=== PATIENT | female | born 1975 | race Hispanic/Latino ===

== ENCOUNTER 2019-11-04 19:02 | Emergency (ER) | payer OTHER ==
[2019-11-04] MEDS ORDERED: ASPIRIN 325 MG TABLET ONE (19:28)
[2019-11-04 19:32] LABS: BASOPHILS % (AUTO) 0.8 % (0.0-5.0); EOSINOPHILS % (AUTO) 3.5 % (0.0-8.0); HEMATOCRIT 39.4 % (36-48); LYMPHOCYTES % (AUTO) 42.8 % (21.0-51.0); MEAN CORPUSCULAR HEMOGLOBIN 30.1 pg (27.0-33.0); MEAN CORPUSCULAR HGB CONC 34.3 g/dL (32.0-36.0); MEAN CORPUSCULAR VOLUME 87.9 fL (79-99); MONOCYTES % (AUTO) 8.2 % (3.0-13.0); NEUTROPHILS % (AUTO) 44.4 % (40.0-77.0); PLATELET COUNT (AUTO) 309 K/uL (130-400); RED BLOOD CELL COUNT(AUTO) 4.48 MIL/uL (4.00-5.50); RED CELL DISTRIBUTION WIDTH 12.3 % (11.0-15.5); WHITE BLOOD COUNT (AUTO) 7.4 K/uL (4.8-10.8)
[2019-11-04 19:40] LABS: CREATININE 0.8 mg/dL (0.5-1.5); POTASSIUM 3.9 mmol/L (3.5-5.1)
[2019-11-04 19:42] LABS: INR 0.97 (0.85-1.15); PARTIAL THROMBOPLASTIN TIME 24.7 SEC (26.3-35.5); PROTHROMBIN TIME 10.2 SEC (9.6-11.6)
[2019-11-04 20:02] LABS: BILIRUBIN,TOTAL 0.3 mg/dL (0.2-1.0); TOTAL PROTEIN, SERUM 8.1 g/dL (6.0-8.3)
[2019-11-04 20:02] LABS: APPEARANCE,URINE Clear (CLEAR); BILIRUBIN,URINE Negative (NEGATIVE); COLOR,URINE Yellow (YELLOW); GLUCOSE, URINE (UA) Negative (NEGATIVE); KETONES,URINE Negative (NEGATIVE); LEUKOCYTE ESTERASE ,URINE Negative (NEGATIVE); NITRATE,URINE Negative (NEGATIVE); OCCULT BLOOD,URINE Negative (NEGATIVE); PROTEIN,URINE Negative (NEGATIVE); UROBILINOGEN,URINE 0.2 mg/dL (0.2-1.0)
[2019-11-04 20:03] LABS: HCG,QUAL RESULT NEGATIVE (NEGATIVE)
[2019-11-04 20:05] LABS: THYROID STIMULATING HORMONE 1.5 uIU/mL (0.36-3.74)
== END 2019-11-04 20:29 | disposition home or self-care (01) ==
LOC: EDH 19:02
DX: R00.2 Palpitations (principal); R07.89 Other chest pain; R61 Generalized hyperhidrosis; R11.0 Nausea
CPT/HCPCS: 36415; 71045; 80053; 81003; 81025; 82550; 83690; 84443; 84484; 85025; 85610; 85730; 93005

== ENCOUNTER 2020-08-16 03:42 | Emergency (ER) | payer OTHER ==
[2020-08-16] MEDS ORDERED: KETOROLAC TROMETHAMINE 60 MG/2 ML VIAL ONE (04:18)
== END 2020-08-16 05:05 | disposition home or self-care (01) ==
LOC: EDH 03:42
DX: M62.838 Other muscle spasm (principal); M54.5 Low back pain; Z98.890 Other specified postprocedural states; Z72.0 Tobacco use
CPT/HCPCS: 96372; 99283; J1885

== ENCOUNTER 2021-07-11 08:45 | Emergency (ER) | payer MEDICAID, OTHER ==
[~2021-07-11] VITALS: Ht 154.9 cm; Wt 66.7 kg
[2021-07-11 09:12] VITALS: BP 122/82
[2021-07-11 09:17] LABS: BASOPHILS % (AUTO) 0.3 % (0.0-5.0); EOSINOPHILS % (AUTO) 0.9 % (0.0-8.0); HEMATOCRIT 39.2 % (36-48); LYMPHOCYTES % (AUTO) 14.7 % (21.0-51.0); MEAN CORPUSCULAR HEMOGLOBIN 30.5 pg (27.0-33.0); MEAN CORPUSCULAR HGB CONC 33.2 g/dL (32.0-36.0); MONOCYTES % (AUTO) 6.5 % (3.0-13.0); NEUTROPHILS % (AUTO) 77.3 % (40.0-77.0); PLATELET COUNT (AUTO) 272 K/uL (130-400); RED BLOOD CELL COUNT(AUTO) 4.26 MIL/uL (4.00-5.50); RED CELL DISTRIBUTION WIDTH 12.8 % (11.0-15.5); WHITE BLOOD COUNT (AUTO) 9.8 K/uL (4.8-10.8)
[2021-07-11 09:21] LABS: APPEARANCE,URINE Clear (CLEAR); BILIRUBIN,URINE Negative (NEGATIVE); COLOR,URINE Yellow (YELLOW); GLUCOSE, URINE (UA) Negative (NEGATIVE); KETONES,URINE Negative (NEGATIVE); LEUKOCYTE ESTERASE ,URINE Negative (NEGATIVE); NITRATE,URINE Negative (NEGATIVE); OCCULT BLOOD,URINE Small (NEGATIVE); PH,URINE 5.5 (5.0-8.0); PROTEIN,URINE Negative (NEGATIVE); UROBILINOGEN,URINE 0.2 mg/dL (0.2-1.0)
[2021-07-11 09:30] LABS: BACTERIA,URINE Rare /HPF (None Seen); SQUAMOUS EPITHELIAL CELL,UR Moderate /HPF (0-2); WBC,URINE 0-1 /HPF (0-1)
[2021-07-11] MEDS ORDERED: 0.9%NACL 1000ML 1,000 ML IV SCH (09:30)
[2021-07-11] MEDS ORDERED: ONDANSETRON 4MG INJ IVP ONE (09:30)
[2021-07-11 09:35] LABS: CREATININE 0.8 mg/dL (0.5-1.5); POTASSIUM 4.2 mmol/L (3.5-5.1)
[2021-07-11 09:39] LABS: ALBUMIN 3.4 g/dL (3.5-5.0); BILIRUBIN,TOTAL 0.2 mg/dL (0.2-1.0); TOTAL PROTEIN, SERUM 7.2 g/dL (6.0-8.3)
[2021-07-11 09:57] VITALS: BP 104/55
[2021-07-11] MEDS ORDERED: DiphenhydrAMINE HCL 50 MG/ML VIAL IM ONE (10:30)
[2021-07-11] MEDS ORDERED: SOLU-MEDROL 125MG VIAL IVP ONE (10:30)
[2021-07-11] MEDS ORDERED: PRED20TA3 PO (11:46)
[2021-07-11] MEDS ORDERED: ONDA4TAB4 PO (11:46)
[2021-07-11] MEDS ORDERED: DIPH50 PO (11:46)
[2021-07-11 11:47] VITALS: BP 115/78
== END 2021-07-11 12:08 | disposition home or self-care (01) ==
LOC: EDH 08:45
DX: L50.0 Allergic urticaria (principal); E86.0 Dehydration; R11.2 Nausea with vomiting, unspecified; Z98.890 Other specified postprocedural states
CPT/HCPCS: 36415; 80053; 81001; 82150; 83690; 85025; 96361; 96372; 96374; 96375; 99284; J1200; J2405; J2930; J7030

== ENCOUNTER 2024-12-07 22:40 | Emergency (ER) | payer BC, MEDICAID ==
[~2024-12-07] VITALS: Ht 152.4 cm; Wt 64.4 kg
[~2024-12-07 22:40] MED LIST: DIPH50 PO; ONDA4TAB4 PO; PRED20TA3 PO
--- NOTE | 2024-12-07 23:20 | ERN ---
ED Note History of Present Illness Stated Complaint: C/O ABD PAIN W/ N X V AND HEADACHE X 3 DAYS Chief Complaint: Abdominal Pain Time Seen by MD: 22:51 Time Seen by Midlevel: 22:51 Dictation: The patient is a 49-year-old female with history of who presents to the emergency department with complaints of epigastric pain for three days associated with nausea. Patient reports that today after running she started to get a right frontal headache associated with some dizziness. Patient denies any trauma. Denies any fevers, diarrhea or constipation. Denies any cough. Denies any use of blood thinners. Allergies: Coded Allergies: No Known Drug Allergies (Unverified Allergy, Unknown, 07/11/21) Home Meds Active Scripts Prednisone (Prednisone) 20 Mg Tablet, 1 TAB PO AD for 6 Days, #14 TAB 0 Refills TAKE 1 TAB BY MOUTH THREE TIMES PER DAY X3 DAYS, THEN TAKE 1 TAB BY MOUTH TWICE A DAY X2 DAYS, THEN TAKE 1 TAB BY MOUTH ONCE A DAY X1 DAY. Prov:KAMRAN KIRK MD 07/11/21 Diphenhydramine HCl (Benadryl) 50 Mg Cap, 50 MG PO TID PRN for ALLERGIC REACTION for 10 Days, #30 CAP 0 Refills Prov:KAMRAN KIRK MD 07/11/21 Ondansetron HCl (Zofran) 4 Mg Tablet, 8 MG PO Q8H PRN for NAUSEA/VOMITING for 5 Days, #20 TAB 0 Refills Prov:KAMRAN KIRK MD 07/11/21 Past Medical History Past Medical History: No Pertinent History Surgical History: None Family History: HTN Social History: Negative, Lives with family RN Note Reviewed/Agreed w/PFSH: Yes Review of System Dictation Constitutional: Negative for fever,chills, and weight loss Eyes: Negative for injury, pain,redness, and discharge ENT: Negative for injury,pain or swelling Cardiovascular: Negative for chest pain, palpitations, and edema Respiratory: Negative for shortness of breath, cough, and wheezing, Abdomen/GI: Negative for , vomiting, diarrhea, and constipation positive for abdominal pain, nausea Back: Negative for injury and pain : Negative for injury, bleeding and discharge MS/Extremity: Negative for injury and deformity Skin: Negative for rash, and discoloration Neuro: Negative for weakness, numbness, tingling, and seizure positive for headache, dizziness Psych: Negative for suicide ideation, homicidal ideation, and hallucinations Initial Vital Sign VS Vital Signs Date Time Temp Pulse Resp B/P (MAP) Pulse Ox O2 Delivery O2 Flow Rate FiO2 12/07/24 22:51 98.1 57 18 125/84 99 Room Air 12/07/24 23:30 0 21 Physical Exam Dictation Vital Signs reviewed General Appearance: Alert, oriented x 3, no acute distress, well developed, nourished. Head and Face: non-traumatic. Eyes: PERRL, pink conjunctivas, eyelid no trauma, anterior chamber with arcus senilis. Ears: Pinnas intact and no signs of trauma or erythema ear canals clear and no discharge TM no erythema Nose: No discharge, no bleeding. Oropharynx: Mouth normal, tongue pink. pharynx clear,no erythema, tonsils no exudates, no abscesses noted, mucous membrane moist Neck: Supple, non-tender, no thyromegaly, no masses, no JVD, no bruits Breast:Deferred Chest:No tenderness, no crepitus, no paradoxical movement, no retractions Lungs:Clear, well-ventilated, symmetric, no rales, no wheezing, no rhonchi, no stridor, good breath sounds bilaterally Heart: Regular rate, regular rhythm, no murmur, no gallops Vascular: no peripheral edema, Abdomen: Soft, positive bowel sounds, nondistended, no guarding, nontender, no rebound, no masses no hepatomegaly, no splenomegaly, no Santacruz's sign, no hernias. Rectal: Deferred Genital: Deferred Neurological: Normal speech, motor function intact, sensory function intact , upper extremities equal in strength, lower extremities equal in strength Musculoskeletal: Neck nontender, full range of motion, back nontender, full range of motion, Extremities: nontender, full range of motion Skin: Color pink, dry, no turgor, no rash, no lacerations, no abrasions, no cont usions. Lymphatic: Deferred Results (Laboratory/Radiology) Laboratory/Radiology Laboratory Tests Test 12/07/24 23:21 White Blood Count 6.6 K/uL (4.8-10.8) Red Blood Count 4.36 MIL/uL (4.00-5.50) Hemoglobin 13.2 g/dL (12.0-16.0) Hematocrit 39.1 % (36-48) Mean Corpuscular Volume 89.7 fL (79-99) Mean Corpuscular Hemoglobin 30.3 pg (27.0-33.0) Mean Corpuscular Hemoglobin Concent 33.8 g/dL (32.0-36.0) Red Cell Distribution Width 12.2 % (11.0-15.5) Platelet Count 311 K/uL (130-400) Mean Platelet Volume 11.2 fL (7.5-10.5) H Immature Granulocyte % (Auto) 0.2 % (0-1) Neutrophils (%) (Auto) 34.2 % (40.0-77.0) L Lymphocytes (%) (Auto) 54.1 % (21.0-51.0) H Monocytes (%) (Auto) 8.1 % (3.0-13.0) Eosinophils (%) (Auto) 2.6 % (0.0-8.0) Basophils (%) (Auto) 0.8 % (0.0-5.0) Neutrophils # (Auto) 2.3 K/uL (1.8-7.7) Lymphocytes # (Auto) 3.6 K/uL (1.0-4.8) Monocytes # (Auto) 0.5 K/uL (0.1-1.0) Eosinophils # (Auto) 0.17 K/uL (0.00-0.70) Basophils # (Auto) 0.05 K/uL (0.00-0.20) Absolute Immature Granulocyte (auto 0.01 K/uL (0-1) Nucleated Red Blood Cells 0.0 % (0.0-0.19) Urine Color LIGHT-YELLOW (YELLOW) Urine Appearance CLEAR (CLEAR) Urine pH 5.0 (5.0-8.0) Urine Specific [place] 1.015 (1.001-1.031) Urine Protein NEGATIVE mg/dL (NEGATIVE) Urine Glucose (UA) NEGATIVE mg/dL (NEGATIVE) Urine Ketones NEGATIVE mg/dL (NEGATIVE) Urine Occult Blood NEGATIVE (NEGATIVE) Urine Nitrate NEGATIVE (NEGATIVE) Urine Bilirubin NEGATIVE mg/dL (NEGATIVE) Urine Urobilinogen 0.2 mg/dL (0.2-1.0) Urine Leukocyte Esterase NEGATIVE Manuel/uL Urine HCG, Qualitative NEGATIVE (NEGATIVE) Sodium Level 137 mmol/L (136-145) Potassium Level 3.7 mmol/L (3.5-5.1) Chloride Level 102 mmol/L (101-111) Carbon Dioxide Level 29 mmol/L (21-32) Blood Urea Nitrogen 16 mg/dL (7-18) Creatinine 0.8 mg/dL (0.5-1.0) Glomerular Filtration Rate Calc 91 mL/min (>90) Random Glucose 92 mg/dL (70-105) Total Calcium 9.5 mg/dL (8.5-10.1) Magnesium Level 2.10 mg/dL (1.80-2.40) Total Bilirubin 0.5 mg/dL (0.2-1.0) Direct Bilirubin 0.1 mg/dL (0.0-0.3) Aspartate Amino Transf (AST/SGOT) 21 U/L (10-37) Alanine Aminotransferase (ALT/SGPT) 28 U/L (12-78) Alkaline Phosphatase 70 U/L (50-136) Total Creatine Kinase 150 U/L (21-232) # Troponin I High Sensitivity 6 ng/L (4-50) Total Protein 7.9 g/dL (6.0-8.3) Albumin 4.2 g/dL (3.5-5.0) Lipase 35 U/L (16-77) REASON: headache ORDERING PHYSICIAN: JACKLYN RASHEED PROCEDURE: HEAD WO - CT HEAD/BRAIN W/O CONTRAST CT HEAD/BRAIN W/O CONTRAST HISTORY: Headaches COMPARISON: None TECHNIQUE: Multiple sequential axial images of the head were obtained from the base of the skull through vertex. Patient was not given contrast through intravenous route. FINDINGS: The ventricles and extraventricular CSF spaces are nondilated for patient's age. There is no midline shift, mass effect or herniation. No acute intracranial bleed is seen. Visualized portion of the paranasal sinuses are grossly within normal limits. IMPRESSION: 1. No acute intracranial bleed is seen. Labs Reviewed?: Yes EKG: (+) rhythm (Sinus rhythm) EKG Comment: Date:12/07/2024 Time:2322 Ventricular rate:54 WI interval:171 QRS duration:82 QT/QTc:410 EKG interpretation: Sinus bradycardia Reviewed by ED Attending no STEMI ED Course ED Course Orders Procedure Category Date Status Time Urinalysis Profile LAB 12/07/24 Complete 22:59 ,Urine Test LAB 12/07/24 Complete 23:06 Cbc With Differential LAB 12/07/24 Complete 23:06 12 Lead Ekg Tracing- EKG 12/07/24 Complete Technical 23:06 0.9%Nacl 1000ml (Ns PHA 12/07/24 Complete 1000ml) 23:30 Magnesium LAB 12/07/24 Complete 23:06 Creatine Kinase, Total LAB 12/07/24 Complete 23:06 Troponin I High LAB 12/07/24 Complete Sensitivity 23:06 Basic Metabolic Panel LAB 12/07/24 Complete 23:06 Lipase LAB 12/07/24 Complete 23:06 Hepatic Function Panel LAB 12/07/24 Complete 23:06 Acetaminophen 500mg PHA 12/07/24 Complete Tab (Tylenol 500mg T 23:30 Metoclopramide 10 PHA 12/07/24 Complete Mg/2 Ml Vial (Reglan 1 23:30 Diphenhydramine Hcl PHA 12/07/24 Complete (Benadryl Inj) 23:30 Pantoprazole 40mg Inj PHA 12/07/24 Complete (Protonix 40mg Inj 23:30 Ct Head/Brain W/O CT 12/08/24 Resulted Contrast 00:17 Current Medications Medications (Trade) Dose Ordered Sig/Lanny Route PRN Reason Start Time Stop Time Status Last Admin Dose Admin Acetaminophen (TYLenol 500MG TAB) 1,000 mg ONCE ONCE PO 12/07/24 23:30 12/07/24 23:31 DC 12/07/24 23:53 Diphenhydramine HCl (BENAdryl INJ) 25 mg ONCE ONCE IV 12/07/24 23:30 12/07/24 23:31 DC 12/07/24 23:53 Metoclopramide HCl (regLAN 10MG IV) 10 mg ONCE ONCE IVP 12/07/24 23:30 12/07/24 23:31 DC 12/07/24 23:53 Pantoprazole Sodium (PROTonix 40MG INJ) 40 mg ONCE ONCE IVP 12/07/24 23:30 12/07/24 23:31 DC 12/07/24 23:53 Sodium Chloride 1,000 ml @ 0 mls/hr ONCE ONCE IV 12/07/24 23:30 12/07/24 23:31 DC 12/07/24 23:53 Vital Signs Date Time Temp Pulse Resp B/P (MAP) Pulse Ox O2 Delivery O2 Flow Rate FiO2 12/07/24 23:30 98.1 60 18 125/62 98 Room Air* 0 21 12/07/24 22:51 98.1 57 18 125/84 99 Room Air Medical Decision Making MDM The patient is a 49-year-old female with history of who presents to the emergency department with complaints of epigastric pain for three days associated with nausea. Patient reports that today after running she started to get a right frontal headache associated with some dizziness. Patient denies any trauma. Denies any fevers, diarrhea or constipation. Denies any cough. Denies any use of blood thinners. CBC showed no leukocytosis, no anemia, chemistry showed no electrolyte imbalance, normal renal function, negative lipase, negative troponin, normal liver enzymes. Urinalysis unremarkable. CT head showed no acute pathology. Patient reports improving in abdominal pain and headache. Reports no longer having any pain. Labs and imaging discussed with the patient who agrees to be discharged and follow up with primary doctor. Patient in no acute distress. Continues neurologically intact. Differential diagnosis: Dehydration, electrolyte imbalance, gastritis, migraine headache, intracerebral hemorrhage Need for hospitalization: Patient does not meet criteria for hospitalization. There are no social concerns with this patient. DX & DISP Disposition: Discharge Departure Impression: Primary Impression: Headache Additional Impression: Gastritis Condition: Stable Scripts Pantoprazole Sodium (Pantoprazole Sodium) 20 Mg Tablet.dr 1 TAB PO DAILY for 30 Days, #30 TAB 0 Refills Prov: JACKLYN RASHEED [facility] 12/08/24 Ondansetron (Ondansetron Odt) 4 Mg Tab.rapdis 4 MG PO Q6HPRN PRN for nausea, #16 TAB 0 Refills Prov: JACKLYN RASHEED 12/08/24 Additional Instructions: Please follow up with your primary doctor in 1-2 days. Take medications as prescribed. If symptoms worsen please return to ER. FOLLOW-UP WITH PRIMARY CARE PROVIDER IN 1 TO 2 DAYS. TAKE MEDICATIONS DIRECTED HERE IN THE EMERGENCY ROOM. OKAY TO CONTINUE HOME MEDICATIONS UNLESS OTHERWISE DISCUSSED DURING YOUR VISIT IN THE EMERGENCY ROOM TODAY. RETURN TO YOUR NEAREST EMERGENCY ROOM IF SYMPTOMS WORSEN OR IF THERE IS NO IMPROVEMENT. CALL 911 IF YOU NEED IMMEDIATE ASSISTANCE. TAKE TYLENOL OR MOTRIN [id number] NEEDED AND IF NO CONTRAINDICATIONS ARE PRESENT. INCREASE ORAL HYDRATION. A WOUND CULTURE OR URINE CULTURE WAS ORDERED HERE IN THE EMERGENCY ROOM DEPARTMENT PLEASE FOLLOW-UP WITH PRIMARY CARE PROVIDER AND ADVISE THEM TO GET REPEAT PORTS FROM OUR FACILITY. IF YOU HAD ANY [employer] WRAP/SPLINTS THAT WERE APPLIED HERE, PLEASE DO NOT REMOVE THEM UNTIL YOU SEE YOUR PRIMARY CARE OR SPECIALTY. Referrals: SELF,REFERRAL (PCP) Time of Disposition: 01:15 I have reviewed the case, and I agree with, Diagnosis and Plan JACKLYN RASHEED [employer]WING [employer]ACHINE MAINTENANCE MECHANIC Dec 07, 2024 23:20
--- NOTE | 2024-12-07 23:26 | EKG ---
[facility] Test Date: 2024-12-07 Test Time: 23:23:48 Pat Name: GOKUL DUNN Department: ED Room: Gender: F Tile Inspector: [id number] : 1975 Requested By: JACKLYN RASHEED Order Number: [id number] Reading MD: Africa Anton Measurements Intervals [place] Rate: 54 P: 35 MN: 171 QRS: 36 QRSD: 82 T: 57 QT: 410 QTc: 387 Interpretive Statements Sinus rhythm Compared to ECG 11/04/2019 19:08:38 Myocardial infarct finding no longer present Electronically Signed On 12-08-2024 17:27:57 [employer]YNAM[employer]ING MACHINE FEEDER by Africa Anton Please click the below link to view image of tracing.
[2024-12-07] MEDS: acetaMINOPHEN 500 MG TABLET PO ONE (23:53)
[2024-12-07] MEDS: DiphenhydrAMINE HCL 50 MG/ML VIAL IV ONE (23:53)
[2024-12-07] MEDS: metoCLOPRAmide 10 MG/2 ML VIAL IVP ONE (23:53)
[2024-12-07] MEDS: 0.9%NACL 1000ML 1,000 ML IV ONE (23:53)
[2024-12-07] MEDS: PANTOPrazole 40 MG/VIAL IVP ONE (23:53)
[2024-12-08 00:09] LABS: BASOPHILS # (AUTO) 0.05 K/uL (0.00-0.20); BASOPHILS % (AUTO) 0.8 % (0.0-5.0); EOSINOPHILS # (AUTO) 0.17 K/uL (0.00-0.70); EOSINOPHILS % (AUTO) 2.6 % (0.0-8.0); HEMATOCRIT 39.1 % (36-48); IMMATURE GRANULOCYTE ABSOLUTE 0.01 K/uL (0-1); LYMPHOCYTES # (AUTO) 3.6 K/uL (1.0-4.8); LYMPHOCYTES % (AUTO) 54.1 % (21.0-51.0); MEAN CORPUSCULAR HEMOGLOBIN 30.3 pg (27.0-33.0); MEAN CORPUSCULAR HGB CONC 33.8 g/dL (32.0-36.0); MEAN CORPUSCULAR VOLUME 89.7 fL (79-99); MONOCYTES # (AUTO) 0.5 K/uL (0.1-1.0); MONOCYTES % (AUTO) 8.1 % (3.0-13.0); NEUTROPHILS # (AUTO) 2.3 K/uL (1.8-7.7); NEUTROPHILS % (AUTO) 34.2 % (40.0-77.0); PLATELET COUNT (AUTO) 311 K/uL (130-400); RED BLOOD CELL COUNT(AUTO) 4.36 MIL/uL (4.00-5.50); RED CELL DISTRIBUTION WIDTH 12.2 % (11.0-15.5); WHITE BLOOD COUNT (AUTO) 6.6 K/uL (4.8-10.8)
[2024-12-08 00:13] LABS: APPEARANCE,URINE CLEAR (CLEAR); BILIRUBIN,URINE NEGATIVE (NEGATIVE); COLOR,URINE LIGHT-YELLOW (YELLOW); GLUCOSE, URINE (UA) NEGATIVE (NEGATIVE); KETONES,URINE NEGATIVE (NEGATIVE); LEUKOCYTE ESTERASE ,URINE NEGATIVE Leu/uL (NEGATIVE); NITRATE,URINE NEGATIVE (NEGATIVE); OCCULT BLOOD,URINE NEGATIVE (NEGATIVE); PROTEIN,URINE NEGATIVE (NEGATIVE); UROBILINOGEN,URINE 0.2 mg/dL (0.2-1.0)
[2024-12-08 00:15] LABS: ADD UA MICROSCOPIC NO
[2024-12-08 00:20] LABS: CREATININE 0.8 mg/dL (0.5-1.0); POTASSIUM 3.7 mmol/L (3.5-5.1)
[2024-12-08 00:24] LABS: ALBUMIN 4.2 g/dL (3.5-5.0); BILIRUBIN,DIRECT 0.1 mg/dL (0.0-0.3); BILIRUBIN,TOTAL 0.5 mg/dL (0.2-1.0); MAGNESIUM 2.1 mg/dL (1.80-2.40); TOTAL PROTEIN, SERUM 7.9 g/dL (6.0-8.3)
--- NOTE | 2024-12-08 01:09 | HMCIMG ---
CT HEAD/BRAIN W/O CONTRAST HISTORY: Headaches COMPARISON: None TECHNIQUE: Multiple sequential axial images of the head were obtained from the base of the skull through vertex. Patient was not given contrast through intravenous route. FINDINGS: The ventricles and extraventricular CSF spaces are nondilated for patient's age. There is no midline shift, mass effect or herniation. No acute intracranial bleed is seen. Visualized portion of the paranasal sinuses are grossly within normal limits. IMPRESSION: 1. No acute intracranial bleed is seen. CT was performed with one or more following dose reduction techniques: automated exposure control, adjustment of the mA and kv according to patient's size, or use of a iterative reconstruction technique.
[2024-12-08] MEDS ORDERED: ONDA-243 PO (01:16)
[2024-12-08] MEDS ORDERED: PANT20TA18 PO (01:16)
[2024-12-08 01:24] VITALS: BP 121/55; PULSE 57; RESP 16; TEMP 98.1; O2SAT 97
== END 2024-12-08 01:25 | disposition home or self-care (01) ==
LOC: EDH 22:40
DX: K29.70 Gastritis, unspecified, without bleeding (principal); R51.9 Headache, unspecified; Z79.899 Other long term (current) drug therapy
CPT/HCPCS: 99285; 96374; 96375; 82550; 80076; 83735; 84484; 80048; 83690; 85025; 81003; 81025; 36415; 93005; 70450; J1200; J7030; J2470; J2765; 99284